=== PATIENT | female | born 1995 | race Caucasian/White ===

== ENCOUNTER 2019-11-21 13:50 | Emergency (ER) | payer MEDICAID ==
[~2019-11-21] VITALS: Ht 162.6 cm; Wt 90.7 kg
[2019-11-21 14:00] VITALS: BP_SYST 129
--- NOTE | 2019-11-21 14:01 | NUR ---
Patient to ER bed 6 to gown for evaluation. Side rails up.
--- NOTE | 2019-11-21 14:05 | NUR ---
Patient presented to ER C/O flu-like symptoms . Patient A&Ox4, ambulatory to ER, afebrile, skin pink and warm, pain 3/ , denies N/V/D. Patient states she has sorethroat & body aches x2 days
--- NOTE | 2019-11-21 14:15 | NUR ---
CRYSTAL Nick at bedside examining patient.
[2019-11-21 15:42] VITALS: BP_SYST 122
--- NOTE | 2019-11-21 15:42 | NUR ---
Patient given written and verbal discharge instructions and verbalizes understanding. ER MD discussed with patient the results and treatment provided. Patient in stable condition. ID arm band removed. Opportunity for questions provided and answered.
== END 2019-11-21 15:42 | disposition home or self-care (01) ==
LOC: SED 13:50
DX: R05 Cough (principal); R50.9 Fever, unspecified; R03.0 Elevated blood-pressure reading, without diagnosis of hypertension
CPT/HCPCS: 36415; 86710; 99283